=== PATIENT | female | born 1955 | race Caucasian/White ===

== ENCOUNTER 2016-10-31 15:30 | Outpatient (CLI) | payer OTHER | END 2016-10-31 15:31 | disposition home or self-care (01) | DX: Z12.31 Encounter for screening mammogram for malignant neoplasm of breast (principal); Z80.3 Family history of malignant neoplasm of breast ==

== ENCOUNTER 2016-12-31 07:11 | Day surgery (SDC) | payer OTHER ==
[2016-12-31] MEDS ORDERED: LACTATED RINGERS 1,000 ML IV ONE (07:45)
[2016-12-31] MEDS ORDERED: fentaNYL 250 MCG/5 ML VIAL IVP ONE (09:02)
[2016-12-31] MEDS ORDERED: MIDAZOLAM 2 MG/2 ML VIAL IVP ONE (09:02)
== END 2016-12-31 07:12 | disposition home or self-care (01) ==
PROC: 0DJD8ZZ Inspection of Lower Intestinal Tract, Via Natural or Artificial Opening Endoscopic (ICD-10-PCS; principal; 2016-12-31 08:15)
DX: Z12.11 Encounter for screening for malignant neoplasm of colon (principal); Q43.8 Other specified congenital malformations of intestine; K64.8 Other hemorrhoids; K63.89 Other specified diseases of intestine; Z82.61 Family history of arthritis; Z83.3 Family history of diabetes mellitus; Z82.3 Family history of stroke; Z82.49 Family history of ischemic heart disease and other diseases of the circulatory system
CPT/HCPCS: 45378; J3010; J7120

== ENCOUNTER 2017-02-28 14:31 | Outpatient (CLI) | payer OTHER | END 2017-02-28 14:32 | disposition home or self-care (01) | DX: R53.83 Other fatigue (principal); D72.819 Decreased white blood cell count, unspecified; E03.9 Hypothyroidism, unspecified ==

== ENCOUNTER 2021-05-02 13:57 | Outpatient (CLI) | payer OTHER ==
--- NOTE | 2021-05-03 11:52 | Mammography Report ---
BILATERAL DIGITAL SCREENING MAMMOGRAM 3D/2D WITH EXAGGERATED CC: 05/02/2021 CLINICAL: Family history of breast cancer. Comparison is made to exams dated: 10/31/2016 mammogram, 07/03/2013 mammogram, and 07/03/2013 ultrasound - [facility]. The tissue of both breasts is predominantly fatty. There are stable benign calcifications in both breasts. No significant masses, calcifications, or other findings are seen in either breast. There has been no significant interval change. IMPRESSION: BENIGN There is no mammographic evidence of malignancy. A 1 year screening mammogram is recommended. This exam was interpreted at Station ID: [id number]. NOTE: For mammograms, a report in lay terms will be sent to the patient. Approximately 15% of breast malignancies will not be visualized mammographically. In the management of a palpable breast mass, a negative mammogram must not discourage biopsy of a clinically suspicious lesion. Electronically Signed By: Nathan Garcia acr/penrad:05/02/2021 18:00:59 ACR BI-RADS Category 2: Benign Finding(s) 3342F PARENCHYMAL PATTERN: (F) - The breast(s) demonstrate(s) diffuse fatty replacement. BI-RADS CATEGORY: (2) - 2 RECOMMENDATION: (ANNUAL) - Recommend routine annual screening mammography. [id number] 1 year screening LATERALITY: (B)
== END 2021-05-02 13:58 | disposition home or self-care (01) ==
LOC: DI.S 13:57
PROVIDERS: ATTEND Family Medicine
DX: Z12.31 Encounter for screening mammogram for malignant neoplasm of breast (principal)

== ENCOUNTER 2021-12-09 08:00 | Outpatient (CLI) | payer OTHER, MEDICARE ==
--- NOTE | 2021-12-09 12:56 | XRAY Report ---
PROCEDURE: Ankle 3 View LT INDICATIONS: LEFT ANKLE PAIN TECHNIQUE: 3 views of the ankle were acquired. COMPARISON: None FINDINGS: Bones: No fractures or dislocations. Ankle mortise is normally aligned. No suspicious bony lesions . Generalized decreased osseous mineralization present. Moderate calcaneal spur present. Soft tissues: No tibiotalar joint effusion. Achilles tendon appears normal. IMPRESSION: Osteopenia and calcaneal spurring Reviewed by: Fidel Blackwood MD on 12/09/2021 11:55 AM [facility] Approved by: Fidel Blackwood MD on 12/09/2021 11:55 AM [facility] Station ID: [id number]
--- NOTE | 2021-12-09 12:58 | XRAY Report ---
PROCEDURE: Knee 3 View LT INDICATIONS: LEFT KNEE PAIN TECHNIQUE: 3 views of the left knee(s) were acquired. COMPARISON: None. FINDINGS: Bones: No fractures or dislocations. No suspicious bony lesions. Osteopenia Soft tissues: No joint effusion. No suspicious soft tissue calcifications. IMPRESSION: Osteopenia without fracture or joint effusion Reviewed by: Fidel Blackwood MD on 12/09/2021 11:56 AM [facility] Approved by: Fidel Blackwood MD on 12/09/2021 11:56 AM [facility] Station ID: [id number]
== END 2021-12-09 23:59 | disposition home or self-care (01) ==
LOC: DI.S 08:00
PROVIDERS: ATTEND Physician Assistant Medical
DX: S80.02XA Contusion of left knee, initial encounter (principal); M85.872 Other specified disorders of bone density and structure, left ankle and foot; M85.862 Other specified disorders of bone density and structure, left lower leg; M77.32 Calcaneal spur, left foot

== ENCOUNTER 2022-02-06 15:18 | Outpatient (CLI) | payer MEDICARE, BC ==
--- NOTE | 2022-02-06 17:14 | DEXA Report ---
PROCEDURE: Dexa Spine and/or Hip INDICATIONS: POST MENOPAUSAL TECHNIQUE: Dual energy x-ray absorptiometry (DXA) was performed on a [employer] System. Regions measur ed are the AP Spine, femoral neck, and if needed forearm. COMPARISON: None. FINDINGS: Lumbar Spine: Bone Mineral Density 0.754 g/cm/cm,T score -3.6, osteoporosis Left Hip: Bone Mineral Density 0.737 g/cm/cm,T score -2.2, osteopenia Left Femoral Neck: Bone Mineral Density 0.773 g/cm/cm, T score -1.9, osteopenia (T score greater or equal to -1.0: NORMAL) (T score from -1.1 to -2.4: OSTEOPENIA) (T score less than or equal to -2.5 to: OSTEOPOROSIS) Impression: Osteoporosis. Patients with diagnosis of osteoporosis or osteopenia should have regular bone mineral density assess ment. For those eligible for Medicare, routine testing is allowed once every 2 years. Testing frequ ency can be increased for patients who have rapidly progressing disease or for those who are receivin g medical therapy to restore bone mass. Reviewed by: Nikole Isabel MD, PhD on 02/06/2022 5:13 PM PDT Approved by: Nikole Isabel MD, PhD on 02/06/2022 5:13 PM PDT Station ID: [id number]
== END 2022-02-06 15:19 | disposition home or self-care (01) ==
LOC: DI 15:18
PROVIDERS: ATTEND Family Medicine
DX: M81.0 Age-related osteoporosis without current pathological fracture (principal); Z78.0 Asymptomatic menopausal state

== ENCOUNTER 2023-06-25 10:18 | Outpatient (CLI) | payer MEDICARE, BC ==
--- NOTE | 2023-06-26 16:26 | Mammography Report ---
UNILATERAL RIGHT DIGITAL DIAGNOSTIC MAMMOGRAM 3D/2D WITH SPOT COMPRESSION: 06/25/2023 CLINICAL: Patient returns today to evaluate a focal asymmetry in the right breast. Comparison is made to exams dated: 06/03/2023 mammogram, 05/02/2021 mammogram, 10/31/2016 mammogram, and mammogram - [facility]. The right breast is heterogeneously dense, which may obscure small masses (category c / 51-75% glandu lar tissue). There are diffuse calcifications in the right breast that are not significantly changed. The previously described 0.6 cm oval equal density focal asymmetry in the right breast at 9 o'clock p osterior depth is not confirmed in additional views. This is less prominent and decreased in size, a nd demonstrates near complete resolution. No other significant masses or calcifications are seen in the breast. IMPRESSION: INCOMPLETE: NEEDS ADDITIONAL IMAGING EVALUATION The possible 0.6 cm oval equal density focal asymmetry in the right breast has a differential diagnos is of a cyst or fibroglandular tissue and is indeterminate. An ultrasound is recommended for furthe r evaluation and is scheduled to immediately follow this examination. Based on the Tyrer Cuzick model (a risk assessment model) the patients lifetime risk is 12.2% and he r 10 year risk is 6.4%. According to the ACR, ACS, and NCCN guidelines, an annual breast MRI exam karla ng with mammogram is recommended if the patients lifetime risk is 20% or greater. This exam was interpreted at Station ID: [id number]. NOTE: For mammograms, a report in lay terms will be sent to the patient. Approximately 15% of breast malignancies will not be visualized mammographically. In the management of a palpable breast mass, a negative mammogram must not discourage biopsy of a clinically suspicious lesion. Electronically Signed By: Giacomo Arriaza M.D. aty/:06/25/2023 11:23:40 ACR BI-RADS Category 0: Incomplete 3340F PARENCHYMAL PATTERN: (D) - The breast(s) demonstrate(s) heterogeneously dense fibroglandular parenchy ma. BI-RADS CATEGORY: (0) - 0 Ultrasound [id number] Immediate follow-up LATERALITY: (R)
--- NOTE | 2023-06-26 16:27 | Ultrasound Report ---
LIMITED ULTRASOUND OF RIGHT BREAST: 06/25/2023 CLINICAL: Patient returns today to evaluate a focal asymmetry in the right breast. Comparison is made to exams dated: 06/25/2023 mammogram, 06/03/2023 mammogram, 05/02/2021 mammogram, 2016 mammogram, and 07/03/2013 mammogram - [facility]. Color flow ultrasound of the right breast 8-10 o'clock, and retroareolar regions was performed. [place] scale images of the real-time examination were reviewed. There is a 1.3 cm x 0.8 cm x 1.2 cm wider than tall oval cyst in the right breast at 3 o'clock middle depth. This oval cyst is anechoic. This correlates as an incidental finding. Color flow imaging d emonstrates that there is no vascularity present. There also is a 1.2 cm x 0.6 cm x 1 cm wider than tall cluster of oval simple cysts in the right nathanael st at 9 o'clock middle depth 4 cm from the nipple. This cluster of oval simple cysts is anechoic. T his may possibly correlate with mammography findings. Color flow imaging demonstrates that there is no vascularity present. Additionally, there is a 0.9 cm x 0.4 cm wider than tall cluster of oval simple cyst in the right elvira ast at 10 o'clock middle depth 4 cm from the nipple. This cluster of oval simple cyst is anechoic. This may also correlate with mammography findings. Color flow imaging demonstrates that there is no vascularity present. IMPRESSION: BENIGN There is no sonographic evidence of malignancy. The 1.3 cm x 0.8 cm x 1.2 cm wider than tall oval cyst in the right breast at 3 o'clock middle depth is consistent with a simple cyst and is benign. The 1.2 cm x 0.6 cm x 1 cm wider than tall cluster of oval simple cysts in the right breast at 9 o'cl ock middle depth is benign. The 0.9 cm x 0.4 cm wider than tall cluster of oval simple cysts in the right breast at 10 o'clock mi ddle depth is benign. A 1 year screening mammogram is recommended. Findings and recommendations were conveyed to the patient during today's evaluation. This exam was interpreted at Station ID: [id number]. Electronically Signed By: Giacomo Arriaza M.D. aty/:06/25/2023 12:52:34 Ultrasound BI-RADS: 2 Benign BI-RADS CATEGORY: (2) - 2 Mammogram [id number] 1 year screening LATERALITY: (B)
== END 2023-06-25 10:19 | disposition home or self-care (01) ==
LOC: DI 10:18
PROVIDERS: ATTEND Family Medicine
DX: N60.11 Diffuse cystic mastopathy of right breast (principal)

== ENCOUNTER 2023-06-25 10:19 | Outpatient (CLI) | payer MEDICARE, BC ==
--- NOTE | 2023-06-25 10:55 | XRAY Report ---
PROCEDURE: Shoulder 3 View LT INDICATIONS: LEFT SHOULDER PAIN, POOR ROM TECHNIQUE: 3 views of the shoulder were acquired. COMPARISON: None. FINDINGS: Bones: No fractures or dislocations. No suspicious bony lesions. Visualized ribs appear intact. Pelvis mild glenohumeral joint degenerative change. Soft tissues: No suspicious soft tissue calcifications. IMPRESSION: Glenohumeral joint degenerative change. No acute bony abnormality. If pain persists with conservative management, consider repeat radiographs in 10-14 days or cross-sectional imaging. Reviewed by: Khoa Kenyon MD on 06/25/2023 10:54 AM PDT Approved by: Khoa Kenyon MD on 06/25/2023 10:54 AM PDT Station ID: [id number]
== END 2023-06-25 10:20 | disposition home or self-care (01) ==
LOC: DI 10:19
PROVIDERS: ATTEND Family Medicine
DX: M19.012 Primary osteoarthritis, left shoulder (principal); N60.11 Diffuse cystic mastopathy of right breast

== ENCOUNTER 2023-07-26 12:45 | Outpatient (CLI) | payer MEDICARE, BC ==
--- NOTE | 2023-07-26 16:45 | DEXA Report ---
PROCEDURE: Dexa Spine and/or Hip INDICATIONS: OSTEOPOROSIS TECHNIQUE: Dual energy x-ray absorptiometry (DXA) was performed on a [employer] System. Regions measur ed are the AP Spine, femoral neck, and if needed forearm. COMPARISON: 02/06/2022 FINDINGS: Lumbar Spine: Bone Mineral Density 0.75 g/cm/cm,T score -3.6. Osteoporosis Left Femoral Neck: Bone Mineral Density 0.7] g/cm/cm, T score -1.8; osteopenia Impression: By WHO criteria, this patient has osteoporosis of the lumbar spine and left femoral neck osteopenia. Patients with diagnosis of osteoporosis or osteopenia should have regular bone mineral density assess ment. For those eligible for Medicare, routine testing is allowed once every 2 years. Testing frequ ency can be increased for patients who have rapidly progressing disease or for those who are receivin g medical therapy to restore bone mass. Reviewed by: Shaun Rai MD on 07/26/2023 4:44 PM PDT Approved by: Shaun Rai MD on 07/26/2023 4:44 PM PDT Station ID: [id number]
== END 2023-07-26 12:46 | disposition home or self-care (01) ==
LOC: DI 12:45
PROVIDERS: ATTEND Family Medicine
DX: M81.0 Age-related osteoporosis without current pathological fracture (principal); N95.9 Unspecified menopausal and perimenopausal disorder

== ENCOUNTER 2024-07-01 09:28 | Outpatient (CLI) | payer MEDICARE, BC ==
--- NOTE | 2024-07-01 13:05 | XRAY Report ---
PROCEDURE: Knee 3V LT INDICATIONS: LT KNEE PAIN TECHNIQUE: 3 views of the knee(s) were acquired. COMPARISON: 12/09/2021 FINDINGS: Bones: No fractures or dislocations. Mild medial compartment joint space narrowing with minimal ost eophytosis. No suspicious bony lesions. Soft tissues: No knee joint effusion. No suspicious soft tissue calcifications or masses. IMPRESSION: No acute bony abnormality. Mild osteoarthritic changes of the knee. Reviewed by: Terry Rm MD on 07/01/2024 1:04 PM PDT Approved by: Terry Rm MD on 07/01/2024 1:04 PM PDT Station ID: [id number]
== END 2024-07-01 09:29 | disposition home or self-care (01) ==
LOC: DI.S 09:28
PROVIDERS: ATTEND Family Medicine
DX: M17.12 Unilateral primary osteoarthritis, left knee (principal)